=== PATIENT | male | born 1965 | race Hispanic/Latino ===

== ENCOUNTER 2021-12-29 08:50 | Outpatient (CLI) | payer MEDICAID ==
[2021-12-29] MEDS ORDERED: LIDOCAINE (4%) 40 MG/ML TOPICAL SOLN 50 ML BOTTLE TP ONE (09:35)
== END 2021-12-29 08:51 | disposition home or self-care (01) ==
LOC: WOUND 08:50
PROVIDERS: ATTEND Surgery
DX: E11.621 Type 2 diabetes mellitus with foot ulcer (principal); I70.262 Atherosclerosis of native arteries of extremities with gangrene, left leg; L97.422 Non-pressure chronic ulcer of left heel and midfoot with fat layer exposed; L84 Corns and callosities; F32.9 Major depressive disorder, single episode, unspecified; Z79.82 Long term (current) use of aspirin; Z79.01 Long term (current) use of anticoagulants; Z79.4 Long term (current) use of insulin; Z86.73 Personal history of transient ischemic attack (TIA), and cerebral infarction without residual deficits; Z89.412 Acquired absence of left great toe; Z89.422 Acquired absence of other left toe(s)

== ENCOUNTER 2022-01-12 10:56 | Outpatient (CLI) | payer MEDICAID ==
[2022-01-12] MEDS ORDERED: LIDOCAINE (4%) 40 MG/ML TOPICAL SOLN 50 ML BOTTLE TP ONE (11:39)
[2022-01-12] MEDS ORDERED: BACITRACIN/POLYMYXIN B OINT 28.35 GM TP SCH (12:00)
[2022-01-12] MEDS ORDERED: SILVER NITRATE APPLICATOR 1 EA TP ONE (16:30)
== END 2022-01-12 10:57 | disposition home or self-care (01) ==
LOC: WOUND 10:56
PROVIDERS: ATTEND Surgery
DX: E11.621 Type 2 diabetes mellitus with foot ulcer (principal); I70.262 Atherosclerosis of native arteries of extremities with gangrene, left leg; L97.422 Non-pressure chronic ulcer of left heel and midfoot with fat layer exposed; L84 Corns and callosities; I10 Essential (primary) hypertension; Z79.82 Long term (current) use of aspirin; Z79.01 Long term (current) use of anticoagulants; Z79.899 Other long term (current) drug therapy; Z86.73 Personal history of transient ischemic attack (TIA), and cerebral infarction without residual deficits; Z89.412 Acquired absence of left great toe; Z89.422 Acquired absence of other left toe(s); Z98.890 Other specified postprocedural states